=== PATIENT | male | born 1980 ===

== ENCOUNTER 2018-05-30 10:36 | Emergency (ER) | payer OTHER ==
--- NOTE | 2018-05-30 11:30 | C.PDOC ---
History Of Present Illness 38 year old male presents to s/p injury to his left hand. 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 He describes that pain as a 6/10 in severity but denies pain meds or ice therapy. Patient denies recent tetanus. He denies numbness, weakness, and paresthesia. Chief Complaint (Nursing): Abnormal Skin Integrity History Per: Patient History/Exam Limitations: no limitations Onset/Duration Of Symptoms: Hrs Current Symptoms Are (Timing): Still Present Location Of Injury: Left: Hand (3 lacerations ) Past Medical History Reviewed: Historical Data, Nursing Documentation, Vital Signs Vital Signs: Last Vital Signs Temp 98.4 F 05/30/18 10:43 Pulse 94 H 05/30/18 10:43 Resp 20 05/30/18 10:43 BP 154/89 H 05/30/18 10:43 Pulse Ox 20 L 05/30/18 10:43 - Medical History PMH: HTN Surgical History: No Surg Hx Family History: States: Unknown Family Hx - Social History Hx Alcohol Use: No Hx Substance Use: No - Immunization History Hx Tetanus Toxoid Vaccination: No Hx Influenza Vaccination: No Review Of Systems Constitutional: Negative for: Fever, Chills, Weakness Musculoskeletal: Positive for: Hand Pain (three left hand lacerations ) Neurological: Negative for: Weakness, Numbness, Dizziness Physical Exam - Physical Exam Appears: Well, Non-toxic, No Acute Distress Skin: Normal Color, Warm, Dry Head: Atraumatic, Normacephalic Neck: Normal ROM, Supple Chest: Symmetrical, No Deformity Cardiovascular: Rhythm Regular Respiratory: No Accessory Muscle Use Extremity: Capillary Refill (<2 seconds), Other (<1mm laceration to the 4 th digit of the left hand, 2.5 cm lacerationlaterally below the 5th digit, <1 cm laceration to the left distal palm, all superficial wounds, neurovascularly intact) Neurological/Psych: Oriented x3, Normal Speech, Normal Cognition ED Course And Treatment O2 Sat by Pulse Oximetry: 20 (in RA) Laceration - Laceration Repair hand repair Wound Length (In cm): various Description Of Wound: Linear Wound Cleansed With: Betadine, Sterile Saline Anesthesia: Lidocaine 1% Wound Examination: Irrigated With Saline, No FB With Wound Exploration Wound Closure: Skin Glue Wound Complexity: Simple Medical Decision Making Medical Decision Making: Plan: Left hand X-ray- neg for fracture Tetanus given Motrin PO for pain Disposition Counseled Patient/Family Regarding: Diagnosis, Need For Followup - Disposition Referrals: [facility] [Outside] Disposition: HOME/ ROUTINE Disposition Time: 12:41 Condition: STABLE Additional Instructions: Continue Bacitracin to site Keep Wound clean and dry Return to ED if wound becomes infected Instructions: Laceration Repair With Glue (DC), Wound Care (DC) Forms: [employer] ([place]), Work Excuse - Clinical Impression Clinical Impression: Laceration of hand - PA / PATIENT CARRIER / Resident Statement MD/DO has reviewed & agrees with the documentation as recorded. (Kimmie Carr) - Scribe Statement The provider has reviewed the documentation as recorded by the Scribe (Kimmie Carr) All medical record entries made by the Scribe were at my direction and personally dictated by me. I have reviewed the chart and agree that the record accurately reflects my personal performance of the history, physical exam, medical decision making, and the department course for this patient. I have also personally directed, reviewed, and agree with the discharge instructions and disposition.
[2018-05-30] MEDS ORDERED: Tdap Vaccine 0.5 ml Vial (10-64 yrs) IM ONE ×2 (11:31→11:43)
[2018-05-30] MEDS ORDERED: Lidocaine 1% Inj (20ml) INFIL ONE (11:36)
[2018-05-30] MEDS ORDERED: Lidocaine Hydrochloride 0 ML INJ ONE (11:41)
--- NOTE | 2018-05-30 12:37 | RAD ---
PROCEDURE: Left Hand Radiographs. HISTORY: s/p trauma COMPARISON: None. FINDINGS: BONES: Bone alignment and mineralization are normal. There is no acute displaced fracture or bone destruction. JOINTS: Normal. No osteoarthritic changes. SOFT TISSUES: Normal. OTHER FINDINGS: None. IMPRESSION: No acute displaced fracture or dislocation.
[2018-05-30] MEDS ORDERED: Bacitracin 500 Units/gm Oint Foilpak UD ONE (12:40)
[2018-05-30 12:47] VITALS: BP 147/89; PULSE 70; RESP 18; TEMP 98.2
[2018-05-30 13:56] VITALS: O2SAT 20
== END 2018-05-30 12:46 | disposition home or self-care (01) ==
LOC: C.ER 10:36
DX: S61.412A Laceration without foreign body of left hand, initial encounter (principal); W22.8XXA Striking against or struck by other objects, initial encounter; Y92.89 Other specified places as the place of occurrence of the external cause; Y99.0 Civilian activity done for income or pay